=== PATIENT | male | born 1950 | race Caucasian/White ===

== ENCOUNTER 2020-07-17 14:26 | Inpatient (IN) ==
[2020-07-17 16:22] LABS: Basophils % 0.3 %; Eosinophils # 0.3 K/mcL (0.0-0.6); Eosinophils % 2.3 %; Hematocrit 42.1 % (37.5-50.1); Hemoglobin 13.2 g/dL (12.9-16.9); Immature Granulocytes % 0.2 % (0-4); Lymphocytes # 2.2 K/mcL (0.6-4.6); Lymphocytes % 17.8 %; Mean Corpuscular HGB Conc 31.4 g/dL (31.6-35.5); Mean Corpuscular Hemoglobin 27.5 pg (28.0-33.3); Mean Corpuscular Volume 87.7 fL (83.0-100.0); Mean Platelet Volume 9.8 fL (9.4-12.4); Monocytes # 0.8 K/mcL (0.0-1.3); Monocytes % 6.1 %; Neutrophils # 9.2 K/mcL (1.6-8.9); Platelet Count 271 K/mcL (140-400); Red Cell Distribution Width 18.9 % (11.5-14.5); Segmented Neutrophils % 73.3 %; White Blood Count 12.6 K/mcL (4.3-11.1)
[2020-07-17 16:33] LABS: INR 1.7; Prothrombin Time 19.4 Seconds (9.4-12.1)
[2020-07-17 16:36] LABS: Activated Partial Thrombo Time 36.1 Seconds (26.0-36.0)
[2020-07-17 16:42] LABS: Alanine Aminotransferase 14 Units/L (7-52); Albumin 3.5 g/dL (3.5-5.7); Albumin/Globulin Ratio 0.9 (1.1-2.2); Alkaline Phosphatase 73 Units/L (34-104); Aspartate Amino Transferase 12 Units/L (13-39); BUN/Creatinine Ratio 26 (6-26); Bilirubin,Direct 0.1 mg/dL (0.0-0.2); Bilirubin,Indirect 0.4 mg/dL (0.0-1.0); Bilirubin,Total 0.5 mg/dL (0.3-1.0); Blood Urea Nitrogen 23 mg/dL (8-23); Calcium 8.2 mg/dL (8.6-10.3); Carbon Dioxide 31 mEq/L (23-29); Chloride 95 mEq/L (98-107); Globulin 3.7 g/dL (2.4-3.5); Glucose 276 mg/dL (70-105); Magnesium 1.7 mg/dL (1.6-2.6); Osmolality,Calculated 294 (280-300); Phosphorous 4.1 mg/dL (2.7-4.5); Potassium 4.6 mEq/L (3.5-5.1); Sodium 135 mEq/L (136-145); Total Protein 7.2 g/dL (6.4-8.9); Troponin I < 0.03 ng/mL (< 0.04); eGFR For African Americans > 60 (> 60); eGFR For Non-African Americans > 60 (> 60)
[2020-07-17] MEDS ORDERED: Vancomycin 1,750 MG/517.5 ML IV.SOLN IVPB ONE (17:00)
[2020-07-17] MEDS ORDERED: D5% in Water 1,000 ML IVC PRN (19:15)
[2020-07-17] MEDS ORDERED: Dextrose Gel 15 GM/37.5 ML TUBE PO PRN ×2 (19:15)
[2020-07-17] MEDS ORDERED: *HR* HYDROcodone/Acet 5/325 mg TABLET PO PRN (19:15)
[2020-07-17] MEDS ORDERED: Naloxone 0.4 MG/ML INJ IVP PRN (19:15)
[2020-07-17] MEDS ORDERED: *HR* Dextrose 50 % in Water (Vial) 50 ML VIAL IVP PRN (19:15)
[2020-07-17 20:45] LABS: Estimated Average Glucose 260 mg/dl; Hemoglobin A1C 10.7 %
[2020-07-17 20:49] LABS: Bacteria,Urine Few per hpf (None-Few); Bilirubin,Urine Negative (Negative); Blood,Urine Small (Negative); Clarity,Urine Clear (Clear); Color,Urine Yellow (Yellow); Glucose,Urine (UA) >=1000 mg/dL (Normal); Ketones,Urine Negative (Negative); Leukocyte Esterase,Urine Small (Negative); Mucus,Urine Few per lpf (None-Few); Nitrite,Urine Negative (Negative); Protein,Urine 30 mg/dL (Neg-Trace); Specific Gravity,Urine 1.028 (1.010-1.025); Squamous Epithelial Cell,Urine Few per hpf (None-Few); Urobilinogen,Urine Normal (Normal); WBC,Urine 15-30 per hpf (0-3)
[2020-07-17] MEDS: Acetaminophen 325 MG TABLET PO PRN (22:06)
[2020-07-17] MEDS: Pregabalin 75 MG CAPSULE PO SCH (22:06)
[2020-07-17] MEDS: Insulin LISPRO 300 UNITS/3 ML VIAL SUBQ SCH (22:07)
[2020-07-17] MEDS: Insulin DETEMIR 100 UNIT/ML X5UNITS SUBQ SCH (22:07)
[2020-07-18 02:56] LABS: Basophils % 0.3 %; Eosinophils # 0.4 K/mcL (0.0-0.6); Eosinophils % 3.5 %; Hematocrit 37.7 % (37.5-50.1); Hemoglobin 11.8 g/dL (12.9-16.9); Immature Granulocytes % 0.4 % (0-4); Lymphocytes # 2.1 K/mcL (0.6-4.6); Lymphocytes % 18.8 %; Mean Corpuscular HGB Conc 31.3 g/dL (31.6-35.5); Mean Corpuscular Hemoglobin 27.5 pg (28.0-33.3); Mean Corpuscular Volume 87.9 fL (83.0-100.0); Mean Platelet Volume 9.5 fL (9.4-12.4); Monocytes # 0.8 K/mcL (0.0-1.3); Monocytes % 6.9 %; Neutrophils # 7.7 K/mcL (1.6-8.9); Platelet Count 251 K/mcL (140-400); Red Blood Count 4.29 M/mcL (4.19-5.50); Red Cell Distribution Width 18.9 % (11.5-14.5); Segmented Neutrophils % 70.1 %
[2020-07-18 03:16] LABS: Alanine Aminotransferase 13 Units/L (7-52); Albumin 3.1 g/dL (3.5-5.7); Alkaline Phosphatase 66 Units/L (34-104); Aspartate Amino Transferase 11 Units/L (13-39); BUN/Creatinine Ratio 27 (6-26); Bilirubin,Total 0.4 mg/dL (0.3-1.0); Blood Urea Nitrogen 22 mg/dL (8-23); Calcium 7.4 mg/dL (8.6-10.3); Carbon Dioxide 32 mEq/L (23-29); Chloride 96 mEq/L (98-107); Globulin 3.2 g/dL (2.4-3.5); Glucose 242 mg/dL (70-105); Osmolality,Calculated 291 (280-300); Potassium 5.1 mEq/L (3.5-5.1); Sodium 135 mEq/L (136-145); Total Protein 6.3 g/dL (6.4-8.9); eGFR For African Americans > 60 (> 60); eGFR For Non-African Americans > 60 (> 60)
[2020-07-18] MEDS: Vancomycin 1,500 MG/265 ML IV.SOLN IVPB SCH ×2 (03:23→16:42)
[2020-07-18] MEDS ORDERED: *HR* Heparin 5,000 UNIT/ML VIAL SQ SCH (06:00)
[2020-07-18] MEDS ORDERED: Isovue-370 500 ML BOTTLE IVP ONE (08:36)
[2020-07-18] MEDS: Pregabalin 75 MG CAPSULE PO SCH ×2 (08:41→22:43)
[2020-07-18] MEDS: lisinopriL 10 MG TABLET PO SCH (08:42)
[2020-07-18] MEDS: Aspirin Enteric Coated 81 MG Tablet PO SCH (08:42)
[2020-07-18] MEDS: Insulin LISPRO 300 UNITS/3 ML VIAL SUBQ SCH ×4 (08:52→22:48)
[2020-07-18] MEDS ORDERED: Vancomycin 1,750 MG in 0.9 % Sodium Chloride 250 ML IVPB SCH (09:00)
[2020-07-18] MEDS: Piperacillin/Tazobactam 3.375 GM in 0.9 % Sodium Chloride Mini Bag 100 ML IVPB SCH ×2 (11:44→22:30)
[2020-07-18] MEDS ORDERED: Ipratropium/Albuterol Neb 3 ML IH PRN (16:15)
[2020-07-18] MEDS ORDERED: Furosemide 20 MG/2 ML VIAL IVP ONE (16:26)
[2020-07-18] MEDS ORDERED: D10% in Water 500 ML IVC PRN (16:51)
[2020-07-18] MEDS: Budesonide/Formoterol 160/4.5 1 PUFF INH IH SCH (19:53)
[2020-07-18] MEDS ORDERED: Piperacillin/Tazobactam 3.375 GM in 0.9 % Sodium Chloride Mini Bag 100 ML IVPB SCH (20:00)
[2020-07-18] MEDS: Insulin DETEMIR 100 UNIT/ML X5UNITS SUBQ SCH (22:43)
[2020-07-18] MEDS: calcitrioL 0.25 MCG CAPSULE PO SCH (22:43)
[2020-07-18] MEDS: Apixaban 5 MG TABLET PO SCH (22:44)
[2020-07-19] MEDS: Piperacillin/Tazobactam 3.375 GM in 0.9 % Sodium Chloride Mini Bag 100 ML IVPB SCH ×4 (00:55→23:20)
[2020-07-19 03:30] LABS: Hematocrit 38.2 % (37.5-50.1); Hemoglobin 11.5 g/dL (12.9-16.9); Mean Corpuscular HGB Conc 30.1 g/dL (31.6-35.5); Mean Corpuscular Hemoglobin 27.1 pg (28.0-33.3); Mean Corpuscular Volume 90.1 fL (83.0-100.0); Mean Platelet Volume 9.6 fL (9.4-12.4); Platelet Count 253 K/mcL (140-400); Red Blood Count 4.24 M/mcL (4.19-5.50); White Blood Count 10.1 K/mcL (4.3-11.1)
[2020-07-19 03:47] LABS: Potassium 5.1 mEq/L (3.5-5.1)
[2020-07-19] MEDS: Budesonide/Formoterol 160/4.5 1 PUFF INH IH SCH ×2 (07:38→22:04)
[2020-07-19 07:44] LABS: ABG Base Excess 5 mEq/L (-2 to 3); ABG HCO3 36 mEq/L (21-27); ABG Oxygen Saturation 90 % (95-98); ABG PCO2 91 mmHg (35-45); ABG PH 7.21 pH Units (7.32-7.45); ABG PO2 74 mmHg (85-104); ABG TCO2 39 mEq/L (20-26)
[2020-07-19] MEDS ORDERED: 0.9 % Sodium Chloride 500 ML IVC SCH (07:45)
[2020-07-19] MEDS: Insulin LISPRO 300 UNITS/3 ML VIAL SUBQ SCH ×4 (08:29→21:00)
[2020-07-19 08:40] LABS: Adenovirus Not Detected (Not Detect); Bordetella Pertussis Not Detected (Not Detect); Chlamydophila pneumoniae Not Detected (Not Detect); Coronavirus 229E Not Detected (Not Detect); Coronavirus HKU1 Not Detected (Not Detect); Coronavirus NL63 Not Detected (Not Detect); Coronavirus OC43 Not Detected (Not Detect); Human Metapneumovirus Not Detected (Not Detect); Human Rhinovirus/Enterovirus Not Detected (Not Detect); Influenza A Subtype 2009 H1 Not Detected (Not Detect); Influenza B Not Detected (Not Detect); Mycoplasma pneumoniae Not Detected (Not Detect); Parainfluenza Virus 1 Not Detected (Not Detect); Parainfluenza Virus 2 Not Detected (Not Detect); Parainfluenza Virus 3 Not Detected (Not Detect); Parainfluenza Virus 4 Not Detected (Not Detect); Respiratory Syncytial Virus Not Detected (Not Detect); SARS-CoV-2 Not Detected (Not Detect)
[2020-07-19] MEDS: Aspirin Enteric Coated 81 MG Tablet PO SCH (09:24)
[2020-07-19] MEDS: Pregabalin 75 MG CAPSULE PO SCH ×2 (09:25→20:55)
[2020-07-19] MEDS: calcitrioL 0.25 MCG CAPSULE PO SCH ×2 (09:26→20:58)
[2020-07-19] MEDS: lisinopriL 10 MG TABLET PO SCH (09:26)
[2020-07-19] MEDS ORDERED: Acetaminophen IV 1,000 MG/100 ML BAG IVPB ONE (11:15)
[2020-07-19 15:24] LABS: ABG Base Excess 6 mEq/L (-2 to 3); ABG HCO3 33 mEq/L (21-27); ABG Oxygen Saturation 97 % (95-98); ABG PCO2 63 mmHg (35-45); ABG PH 7.33 pH Units (7.32-7.45); ABG PO2 96 mmHg (85-104); ABG TCO2 35 mEq/L (20-26); Blood Gas Modality BiLevel; Blood Gas Pressure Support 8 cm H2O; Blood Gas VT 522 cc
[2020-07-19] MEDS ORDERED: 0.9 % Sodium Chloride 1,000 ML IVC SCH ×2 (17:15→17:33)
[2020-07-19] MEDS ORDERED: 0.9 % Sodium Chloride 1,000 ML IVC ONE (20:00)
[2020-07-19] MEDS: Insulin DETEMIR 100 UNIT/ML X5UNITS SUBQ SCH (21:01)
[2020-07-19] MEDS: *HR* OxyCODONE Immed Rel 5 MG TABLET PO PRN (21:45)
[2020-07-20 05:38] LABS: Bacteria,Urine Few per hpf (None-Few); Bilirubin,Urine Negative (Negative); Blood,Urine Moderate (Negative); Budding Yeast,Urine Few per hpf (None Seen); Clarity,Urine Turbid (Clear); Color,Urine Yellow (Yellow); Glucose,Urine (UA) Normal (Normal); Ketones,Urine Negative (Negative); Leukocyte Esterase,Urine Negative (Negative); Mucus,Urine Few per lpf (None-Few); Nitrite,Urine Negative (Negative); PH,Urine 5.5 pH Units (5.0-8.0); Protein,Urine 50 mg/dL (Neg-Trace); Specific Gravity,Urine 1.026 (1.010-1.025); Urobilinogen,Urine Normal (Normal)
[2020-07-20 05:40] LABS: VBG HCO3 31 mEq/L (21-27); VBG PCO2 62 mmHg (41-51); VBG PH 7.31 pH Units (7.32-7.42); VBG PO2 53 mmHg (25-50)
[2020-07-20 05:41] LABS: Hematocrit 36.7 % (37.5-50.1); Hemoglobin 10.8 g/dL (12.9-16.9); Mean Corpuscular HGB Conc 29.4 g/dL (31.6-35.5); Mean Corpuscular Hemoglobin 26.5 pg (28.0-33.3); Mean Corpuscular Volume 90.2 fL (83.0-100.0); Mean Platelet Volume 9.2 fL (9.4-12.4); Platelet Count 242 K/mcL (140-400); Red Blood Count 4.07 M/mcL (4.19-5.50); Red Cell Distribution Width 18.9 % (11.5-14.5); White Blood Count 8.8 K/mcL (4.3-11.1)
[2020-07-20] MEDS: Piperacillin/Tazobactam 3.375 GM in 0.9 % Sodium Chloride Mini Bag 100 ML IVPB SCH ×3 (08:20→23:31)
[2020-07-20] MEDS: Apixaban 5 MG TABLET PO SCH ×2 (08:21→20:02)
[2020-07-20] MEDS: calcitrioL 0.25 MCG CAPSULE PO SCH ×2 (08:21→20:02)
[2020-07-20] MEDS: Aspirin Enteric Coated 81 MG Tablet PO SCH (08:21)
[2020-07-20] MEDS: Pregabalin 75 MG CAPSULE PO SCH ×2 (08:21→20:02)
[2020-07-20] MEDS ORDERED: Vancomycin 500 MG in 0.9 % Sodium Chloride Mini Bag 100 ML IVPB ONE (09:00)
[2020-07-20] MEDS: Insulin LISPRO 300 UNITS/3 ML VIAL SUBQ SCH ×4 (09:01→20:13)
[2020-07-20 09:52] LABS: Calcium 6.5 mg/dL (8.6-10.3); Potassium 4.8 mEq/L (3.5-5.1)
[2020-07-20] MEDS: Budesonide/Formoterol 160/4.5 1 PUFF INH IH SCH ×2 (10:08→22:17)
[2020-07-20] MEDS: *HR* OxyCODONE Immed Rel 5 MG TABLET PO PRN (20:02)
[2020-07-20] MEDS: Insulin DETEMIR 100 UNIT/ML X5UNITS SUBQ SCH (20:02)
[2020-07-20] MEDS: Acetaminophen 325 MG TABLET PO PRN (23:31)
[2020-07-21 00:42] LABS: Basophils % 0.3 %; Eosinophils # 0.6 K/mcL (0.0-0.6); Hematocrit 35.8 % (37.5-50.1); Hemoglobin 10.8 g/dL (12.9-16.9); Immature Granulocytes % 0.2 % (0-4); Lymphocytes # 1.9 K/mcL (0.6-4.6); Mean Corpuscular HGB Conc 30.2 g/dL (31.6-35.5); Mean Corpuscular Hemoglobin 26.4 pg (28.0-33.3); Mean Corpuscular Volume 87.5 fL (83.0-100.0); Monocytes # 0.5 K/mcL (0.0-1.3); Monocytes % 5.2 %; Neutrophils # 6.2 K/mcL (1.6-8.9); Platelet Count 257 K/mcL (140-400); Red Blood Count 4.09 M/mcL (4.19-5.50); Red Cell Distribution Width 18.5 % (11.5-14.5); Segmented Neutrophils % 67.3 %; White Blood Count 9.2 K/mcL (4.3-11.1)
[2020-07-21 00:48] LABS: VBG HCO3 27 mEq/L (21-27); VBG PCO2 50 mmHg (41-51); VBG PH 7.34 pH Units (7.32-7.42); VBG PO2 68 mmHg (25-50)
[2020-07-21 01:05] LABS: BUN/Creatinine Ratio 23 (6-26); Blood Urea Nitrogen 23 mg/dL (8-23); Calcium 6.6 mg/dL (8.6-10.3); Carbon Dioxide 29 mEq/L (23-29); Chloride 99 mEq/L (98-107); Glucose 176 mg/dL (70-105); Osmolality,Calculated 288 (280-300); Potassium 4.7 mEq/L (3.5-5.1); Sodium 135 mEq/L (136-145); eGFR For African Americans > 60 (> 60); eGFR For Non-African Americans > 60 (> 60)
[2020-07-21 01:06] LABS: Albumin 3.1 g/dL (3.5-5.7); Albumin/Globulin Ratio 0.9 (1.1-2.2); Bilirubin,Direct 0.2 mg/dL (0.0-0.2); Bilirubin,Indirect 0.2 mg/dL (0.0-1.0); Bilirubin,Total 0.4 mg/dL (0.3-1.0); Globulin 3.3 g/dL (2.4-3.5); Total Protein 6.4 g/dL (6.4-8.9)
[2020-07-21] MEDS: Vancomycin 500 MG in 0.9 % Sodium Chloride Mini Bag 100 ML IVPB SCH ×2 (03:49→15:51)
[2020-07-21] MEDS: Budesonide/Formoterol 160/4.5 1 PUFF INH IH SCH ×2 (07:54→21:19)
[2020-07-21] MEDS: calcitrioL 0.25 MCG CAPSULE PO SCH ×2 (08:37→21:39)
[2020-07-21] MEDS: Apixaban 5 MG TABLET PO SCH ×2 (08:37→21:39)
[2020-07-21] MEDS: Pregabalin 75 MG CAPSULE PO SCH ×2 (08:37→21:40)
[2020-07-21] MEDS: Aspirin Enteric Coated 81 MG Tablet PO SCH (08:37)
[2020-07-21] MEDS: Piperacillin/Tazobactam 3.375 GM in 0.9 % Sodium Chloride Mini Bag 100 ML IVPB SCH ×3 (08:38→23:24)
[2020-07-21] MEDS: Insulin LISPRO 300 UNITS/3 ML VIAL SUBQ SCH ×4 (08:39→21:41)
[2020-07-21] MEDS: Furosemide 20 MG TABLET PO SCH (12:54)
[2020-07-21] MEDS ORDERED: Tuberculin Skin Test (PPD) 5 UNIT/0.1 ML VIAL ID ONE (14:12)
[2020-07-21] MEDS: *HR* OxyCODONE Immed Rel 5 MG TABLET PO PRN (17:22)
[2020-07-21] MEDS: Insulin DETEMIR 100 UNIT/ML X5UNITS SUBQ SCH (21:40)
[2020-07-22] MEDS: Vancomycin 500 MG in 0.9 % Sodium Chloride Mini Bag 100 ML IVPB SCH ×2 (03:51→20:04)
[2020-07-22 05:32] LABS: Hematocrit 34.1 % (37.5-50.1); Hemoglobin 10.4 g/dL (12.9-16.9); Mean Corpuscular HGB Conc 30.5 g/dL (31.6-35.5); Mean Corpuscular Hemoglobin 27.2 pg (28.0-33.3); Mean Platelet Volume 9.2 fL (9.4-12.4); Platelet Count 251 K/mcL (140-400); Red Blood Count 3.83 M/mcL (4.19-5.50); Red Cell Distribution Width 17.9 % (11.5-14.5)
[2020-07-22 05:57] LABS: BUN/Creatinine Ratio 21 (6-26); Blood Urea Nitrogen 18 mg/dL (8-23); Calcium 7.5 mg/dL (8.6-10.3); Carbon Dioxide 35 mEq/L (23-29); Chloride 98 mEq/L (98-107); Glucose 189 mg/dL (70-105); Osmolality,Calculated 291 (280-300); Potassium 4.5 mEq/L (3.5-5.1); Sodium 137 mEq/L (136-145); eGFR For African Americans > 60 (> 60); eGFR For Non-African Americans > 60 (> 60)
[2020-07-22] MEDS ORDERED: Perflutren Lipid Microsphere 1.3 ML in 0.9 % Sodium Chloride 8.7 ML IVP PRN (07:23)
[2020-07-22] MEDS: Budesonide/Formoterol 160/4.5 1 PUFF INH IH SCH ×2 (07:35→20:43)
[2020-07-22] MEDS: Apixaban 5 MG TABLET PO SCH ×2 (08:46→22:15)
[2020-07-22] MEDS: calcitrioL 0.25 MCG CAPSULE PO SCH ×2 (08:46→22:15)
[2020-07-22] MEDS: Piperacillin/Tazobactam 3.375 GM in 0.9 % Sodium Chloride Mini Bag 100 ML IVPB SCH ×2 (08:46→16:30)
[2020-07-22] MEDS: Pregabalin 75 MG CAPSULE PO SCH ×2 (08:47→22:15)
[2020-07-22] MEDS: Aspirin Enteric Coated 81 MG Tablet PO SCH (08:47)
[2020-07-22] MEDS: Furosemide 20 MG TABLET PO SCH ×2 (08:47→16:29)
[2020-07-22] MEDS: Insulin LISPRO 300 UNITS/3 ML VIAL SUBQ SCH ×4 (08:51→23:08)
[2020-07-22] MEDS: Vancomycin 1,250 MG/262.5 ML IV.SOLN IVPB SCH (17:03)
[2020-07-22] MEDS: Insulin DETEMIR 100 UNIT/ML X5UNITS SUBQ SCH (22:15)
[2020-07-22] MEDS: *HR* OxyCODONE Immed Rel 5 MG TABLET PO PRN (22:15)
[2020-07-23] MEDS: Piperacillin/Tazobactam 3.375 GM in 0.9 % Sodium Chloride Mini Bag 100 ML IVPB SCH ×3 (05:02→20:04)
[2020-07-23] MEDS: Vancomycin 1,250 MG/262.5 ML IV.SOLN IVPB SCH ×2 (05:05→16:13)
[2020-07-23 06:01] LABS: Basophils % 0.6 %; Eosinophils # 0.8 K/mcL (0.0-0.6); Eosinophils % 11.7 %; Hematocrit 35.4 % (37.5-50.1); Hemoglobin 11.1 g/dL (12.9-16.9); Immature Granulocytes % 0.1 % (0-4); Lymphocytes # 2.1 K/mcL (0.6-4.6); Lymphocytes % 30.5 %; Mean Corpuscular HGB Conc 31.4 g/dL (31.6-35.5); Mean Corpuscular Hemoglobin 26.9 pg (28.0-33.3); Mean Corpuscular Volume 85.9 fL (83.0-100.0); Mean Platelet Volume 9.3 fL (9.4-12.4); Monocytes # 0.3 K/mcL (0.0-1.3); Monocytes % 4.8 %; Neutrophils # 3.6 K/mcL (1.6-8.9); Platelet Count 273 K/mcL (140-400); Red Blood Count 4.12 M/mcL (4.19-5.50); Red Cell Distribution Width 17.6 % (11.5-14.5); Segmented Neutrophils % 52.3 %; White Blood Count 6.8 K/mcL (4.3-11.1)
[2020-07-23 06:22] LABS: BUN/Creatinine Ratio 18 (6-26); Blood Urea Nitrogen 15 mg/dL (8-23); Calcium 8.3 mg/dL (8.6-10.3); Carbon Dioxide 36 mEq/L (23-29); Chloride 93 mEq/L (98-107); Glucose 242 mg/dL (70-105); Osmolality,Calculated 289 (280-300); Potassium 4.7 mEq/L (3.5-5.1); Sodium 135 mEq/L (136-145); eGFR For African Americans > 60 (> 60); eGFR For Non-African Americans > 60 (> 60)
[2020-07-23] MEDS: Budesonide/Formoterol 160/4.5 1 PUFF INH IH SCH ×2 (07:36→20:35)
[2020-07-23] MEDS: Pregabalin 75 MG CAPSULE PO SCH ×2 (08:44→20:03)
[2020-07-23] MEDS: Apixaban 5 MG TABLET PO SCH (08:44)
[2020-07-23] MEDS: calcitrioL 0.25 MCG CAPSULE PO SCH ×2 (08:45→20:04)
[2020-07-23] MEDS: Furosemide 20 MG TABLET PO SCH ×2 (08:45→16:12)
[2020-07-23] MEDS: Aspirin Enteric Coated 81 MG Tablet PO SCH (08:45)
[2020-07-23] MEDS: Insulin LISPRO 300 UNITS/3 ML VIAL SUBQ SCH ×4 (08:53→21:53)
[2020-07-23] MEDS ORDERED: Furosemide 40 MG/4 ML VIAL IVP ONE (18:59)
[2020-07-23] MEDS: *HR* Heparin 5,000 UNIT/ML VIAL SQ SCH (21:52)
[2020-07-23] MEDS: Insulin DETEMIR 100 UNIT/ML X5UNITS SUBQ SCH (21:53)
[2020-07-24 04:29] LABS: Basophils % 0.5 %; Eosinophils # 0.7 K/mcL (0.0-0.6); Hematocrit 38.8 % (37.5-50.1); Immature Granulocytes % 0.4 % (0-4); Lymphocytes % 26.7 %; Mean Corpuscular HGB Conc 30.9 g/dL (31.6-35.5); Mean Corpuscular Hemoglobin 26.6 pg (28.0-33.3); Monocytes # 0.3 K/mcL (0.0-1.3); Monocytes % 3.7 %; Neutrophils # 4.3 K/mcL (1.6-8.9); Platelet Count 292 K/mcL (140-400); Red Blood Count 4.51 M/mcL (4.19-5.50); Red Cell Distribution Width 17.2 % (11.5-14.5); Segmented Neutrophils % 58.7 %; White Blood Count 7.3 K/mcL (4.3-11.1)
[2020-07-24 04:46] LABS: BUN/Creatinine Ratio 19 (6-26); Blood Urea Nitrogen 18 mg/dL (8-23); Calcium 8.7 mg/dL (8.6-10.3); Carbon Dioxide 40 mEq/L (23-29); Chloride 90 mEq/L (98-107); Glucose 227 mg/dL (70-105); Osmolality,Calculated 293 (280-300); Potassium 4.2 mEq/L (3.5-5.1); Sodium 137 mEq/L (136-145); eGFR For African Americans > 60 (> 60); eGFR For Non-African Americans > 60 (> 60)
[2020-07-24] MEDS: Vancomycin 1,250 MG/262.5 ML IV.SOLN IVPB SCH ×2 (04:58→17:25)
[2020-07-24] MEDS: Piperacillin/Tazobactam 3.375 GM in 0.9 % Sodium Chloride Mini Bag 100 ML IVPB SCH ×3 (04:59→21:10)
[2020-07-24] MEDS: *HR* Heparin 5,000 UNIT/ML VIAL SQ SCH (04:59)
[2020-07-24 07:22] LABS: QuantiFERON Mitogen minus NIL 9.56 IU/mL
[2020-07-24] MEDS: Budesonide/Formoterol 160/4.5 1 PUFF INH IH SCH ×2 (08:24→22:07)
[2020-07-24 08:29] LABS: ABG Base Excess 15 mEq/L (-2 to 3); ABG HCO3 42 mEq/L (21-27); ABG Oxygen Saturation 88 % (95-98); ABG PCO2 63 mmHg (35-45); ABG PH 7.44 pH Units (7.32-7.45); ABG PO2 55 mmHg (85-104); ABG TCO2 44 mEq/L (20-26)
[2020-07-24] MEDS: Insulin LISPRO 300 UNITS/3 ML VIAL SUBQ SCH ×4 (08:45→21:09)
[2020-07-24] MEDS: Aspirin Enteric Coated 81 MG Tablet PO SCH (08:45)
[2020-07-24] MEDS: Furosemide 20 MG TABLET PO SCH ×2 (08:46→17:15)
[2020-07-24] MEDS: calcitrioL 0.25 MCG CAPSULE PO SCH ×2 (08:46→21:08)
[2020-07-24] MEDS: Pregabalin 75 MG CAPSULE PO SCH ×2 (08:46→21:08)
[2020-07-24 11:01] LABS: QuantiFERON NIL 0.18 IU/mL; QuantiFERON-TB Gold In-Tube NEGATIVE (Negative)
[2020-07-24] MEDS: Apixaban 5 MG TABLET PO SCH (21:09)
[2020-07-24] MEDS: Insulin DETEMIR 100 UNIT/ML X5UNITS SUBQ SCH (21:09)
[2020-07-25] MEDS: Piperacillin/Tazobactam 3.375 GM in 0.9 % Sodium Chloride Mini Bag 100 ML IVPB SCH ×3 (05:45→21:04)
[2020-07-25] MEDS: Vancomycin 1,250 MG/262.5 ML IV.SOLN IVPB SCH (05:46)
[2020-07-25 06:32] LABS: Basophils % 0.4 %; Eosinophils # 0.7 K/mcL (0.0-0.6); Eosinophils % 10.3 %; Hematocrit 39.9 % (37.5-50.1); Hemoglobin 12.1 g/dL (12.9-16.9); Immature Granulocytes % 0.3 % (0-4); Lymphocytes # 2.1 K/mcL (0.6-4.6); Lymphocytes % 30.6 %; Mean Corpuscular HGB Conc 30.3 g/dL (31.6-35.5); Mean Corpuscular Hemoglobin 26.9 pg (28.0-33.3); Mean Corpuscular Volume 88.7 fL (83.0-100.0); Mean Platelet Volume 9.1 fL (9.4-12.4); Monocytes # 0.3 K/mcL (0.0-1.3); Monocytes % 4.5 %; Neutrophils # 3.6 K/mcL (1.6-8.9); Platelet Count 290 K/mcL (140-400); Red Cell Distribution Width 17.4 % (11.5-14.5); Segmented Neutrophils % 53.9 %; White Blood Count 6.7 K/mcL (4.3-11.1)
[2020-07-25 06:49] LABS: BUN/Creatinine Ratio 25 (6-26); Blood Urea Nitrogen 24 mg/dL (8-23); Calcium 9.1 mg/dL (8.6-10.3); Carbon Dioxide 41 mEq/L (23-29); Chloride 89 mEq/L (98-107); Glucose 293 mg/dL (70-105); Osmolality,Calculated 297 (280-300); Potassium 4.3 mEq/L (3.5-5.1); Sodium 136 mEq/L (136-145); eGFR For African Americans > 60 (> 60); eGFR For Non-African Americans > 60 (> 60)
[2020-07-25] MEDS: Budesonide/Formoterol 160/4.5 1 PUFF INH IH SCH ×2 (08:02→22:39)
[2020-07-25 08:38] LABS: ABG Base Excess 15 mEq/L (-2 to 3); ABG HCO3 43 mEq/L (21-27); ABG Oxygen Saturation 89 % (95-98); ABG PCO2 68 mmHg (35-45); ABG PH 7.41 pH Units (7.32-7.45); ABG PO2 58 mmHg (85-104); ABG TCO2 45 mEq/L (20-26)
[2020-07-25] MEDS: calcitrioL 0.25 MCG CAPSULE PO SCH ×2 (09:03→21:06)
[2020-07-25] MEDS: Apixaban 5 MG TABLET PO SCH ×2 (09:03→21:06)
[2020-07-25] MEDS: Furosemide 20 MG TABLET PO SCH ×2 (09:03→16:21)
[2020-07-25] MEDS: Insulin LISPRO 300 UNITS/3 ML VIAL SUBQ SCH ×4 (09:03→21:08)
[2020-07-25] MEDS: Aspirin Enteric Coated 81 MG Tablet PO SCH (09:03)
[2020-07-25] MEDS: Pregabalin 75 MG CAPSULE PO SCH ×2 (09:03→21:05)
[2020-07-25] MEDS: Insulin DETEMIR 100 UNIT/ML X5UNITS SUBQ SCH (21:07)
[2020-07-25 23:11] LABS: A.galactomannan Ag Index 0.06
[2020-07-26] MEDS: Piperacillin/Tazobactam 3.375 GM in 0.9 % Sodium Chloride Mini Bag 100 ML IVPB SCH ×2 (05:10→12:20)
[2020-07-26 05:41] LABS: Basophils % 0.5 %; Eosinophils # 0.7 K/mcL (0.0-0.6); Eosinophils % 9.1 %; Hematocrit 39.3 % (37.5-50.1); Hemoglobin 11.9 g/dL (12.9-16.9); Immature Granulocytes % 0.4 % (0-4); Lymphocytes # 2.2 K/mcL (0.6-4.6); Lymphocytes % 29.7 %; Mean Corpuscular HGB Conc 30.3 g/dL (31.6-35.5); Mean Corpuscular Hemoglobin 26.9 pg (28.0-33.3); Mean Corpuscular Volume 88.7 fL (83.0-100.0); Mean Platelet Volume 9.1 fL (9.4-12.4); Monocytes # 0.4 K/mcL (0.0-1.3); Monocytes % 4.9 %; Neutrophils # 4.1 K/mcL (1.6-8.9); Platelet Count 285 K/mcL (140-400); Red Blood Count 4.43 M/mcL (4.19-5.50); Red Cell Distribution Width 17.3 % (11.5-14.5); Segmented Neutrophils % 55.4 %; White Blood Count 7.5 K/mcL (4.3-11.1)
[2020-07-26 06:00] LABS: BUN/Creatinine Ratio 27 (6-26); Blood Urea Nitrogen 27 mg/dL (8-23); Carbon Dioxide 39 mEq/L (23-29); Chloride 91 mEq/L (98-107); Glucose 305 mg/dL (70-105); Osmolality,Calculated 297 (280-300); Potassium 4.5 mEq/L (3.5-5.1); Sodium 135 mEq/L (136-145); eGFR For African Americans > 60 (> 60); eGFR For Non-African Americans > 60 (> 60)
[2020-07-26] MEDS: Budesonide/Formoterol 160/4.5 1 PUFF INH IH SCH (07:37)
[2020-07-26 08:01] VITALS: BP 163/81
[2020-07-26] MEDS: Pregabalin 75 MG CAPSULE PO SCH (08:44)
[2020-07-26] MEDS: Furosemide 20 MG TABLET PO SCH (08:44)
[2020-07-26] MEDS: Aspirin Enteric Coated 81 MG Tablet PO SCH (08:44)
[2020-07-26] MEDS: calcitrioL 0.25 MCG CAPSULE PO SCH (08:45)
[2020-07-26] MEDS: Apixaban 5 MG TABLET PO SCH (08:45)
[2020-07-26] MEDS: Insulin LISPRO 300 UNITS/3 ML VIAL SUBQ SCH ×2 (08:48→12:19)
[2020-07-26 12:52] LABS: Adenovirus Not Detected (Not Detect); Bordetella Pertussis Not Detected (Not Detect); Chlamydophila pneumoniae Not Detected (Not Detect); Coronavirus 229E Not Detected (Not Detect); Coronavirus HKU1 Not Detected (Not Detect); Coronavirus NL63 Not Detected (Not Detect); Coronavirus OC43 Not Detected (Not Detect); Human Metapneumovirus Not Detected (Not Detect); Human Rhinovirus/Enterovirus Not Detected (Not Detect); Influenza A Subtype 2009 H1 Not Detected (Not Detect); Influenza B Not Detected (Not Detect); Mycoplasma pneumoniae Not Detected (Not Detect); Parainfluenza Virus 1 Not Detected (Not Detect); Parainfluenza Virus 2 Not Detected (Not Detect); Parainfluenza Virus 3 Not Detected (Not Detect); Parainfluenza Virus 4 Not Detected (Not Detect); Respiratory Syncytial Virus Not Detected (Not Detect); SARS-CoV-2 Not Detected (Not Detect)
== END 2020-07-26 16:41 | DRG 871 ==
LOC: 3ANU 14:26 → EMEROOARM 14:26 → 3ANU 20:25 → SUATTDRO 20:51 → 3ANU 07-22 13:46
PROVIDERS: ADMIT Internal Medicine; ATTEND Family Medicine